=== PATIENT | female | born 1940 | race Caucasian/White ===

== ENCOUNTER 2017-03-01 17:00 | Inpatient (IN) | payer MEDICARE, OTHER ==
[~2017-03-01] VITALS: Ht 154.9 cm; Wt 62.0 kg
[~2017-03-01 17:00] MED LIST: PROC90TA PO; PROT40TA PO; SYNT125T PO
[2017-03-01 17:11] VITALS: BP 205/91; TEMP 97.6
[2017-03-01] MEDS ORDERED: SODIUM CHLORIDE 0.9% FLUSH 10 ML FLUSH IVF PRN (17:15)
[2017-03-01] MEDS ORDERED: SUMA100T2 PO (17:19)
[2017-03-01] MEDS ORDERED: NIFE15TA PO (17:19)
[2017-03-01] MEDS ORDERED: LEVO125T4 PO (17:19)
--- NOTE | 2017-03-01 17:51 | RADRPT ---
EXAM DATE/TIME: 03/01/2017 17:18 [facility] COMPARISON: No previous studies available for comparison. INDICATIONS : Evaluate chest for trauma, fell MEDICAL HISTORY : None. SURGICAL HISTORY : None. ENCOUNTER: Initial ACUITY: 1 day PAIN SCORE: 0/10 LOCATION: Bilateral chest FINDINGS: A single view of the chest demonstrates the lungs to be symmetrically aerated without evidence of mas s, infiltrate or effusion. The cardiomediastinal contours are unremarkable. Osseous structures are intact. CONCLUSION: No acute disease. Andrea Ricketts MD on March 01, 2017 at 17:49 Board Certified Radiologist. This report was verified electronically.
--- NOTE | 2017-03-01 17:53 | RADRPT ---
EXAM DATE/TIME: 03/01/2017 17:28 [facility] COMPARISON: No previous studies available for comparison. INDICATIONS : Right proximal femur pain, fell MEDICAL HISTORY : None. SURGICAL HISTORY : None. ENCOUNTER: Initial ACUITY: 1 day PAIN SCORE: 6/10 LOCATION: Right Femur FINDINGS: There is a mildly displaced intertrochanteric fracture of the proximal right femur. Bones are osteope constantine. No dislocation. Osteoarthritis of the right hip. CONCLUSION: 1. Mildly displaced intertrochanteric fracture proximal right femur. Andrea Ricketts MD on March 01, 2017 at 17:50 Board Certified Radiologist. This report was verified electronically.
--- NOTE | 2017-03-01 18:03 | PD ---
HPI Chief Complaint: Fall Time Seen by Provider: 17:03 Travel History International Travel<30 days: No Contact w/Intl Traveler<30days: No Traveled to known affect area: No History of Present Illness HPI 76-year-old female arrives by EMS. She experienced a mechanical fall while walking. She suffers with oculopharyngeal muscular dysplasia. She denies head trauma. She takes no anticoagulation. She has 0/10 right hip pain at rest however with movement the pain becomes 10 over 10. Onset sudden. No loss of consciousness occurred. No radiation. PFSH Past Medical History Autoimmune Disease: No Cancer: No Cardiovascular Problems: Yes Endocrine: Yes Genitourinary: No Immune Disorder: No Musculoskeletal: Yes (MUSCULAR DISTROPHY) Neurologic: No Psychiatric: No Reproductive: No Respiratory: No Migraines: Yes Thyroid Disease: Yes (Goiter) ?: Not Past Surgical History Pacemaker: No Social History Alcohol Use: No Tobacco Use: No Substance Use: No Allergies-Medications (Allergen,Severity, Reaction): Coded Allergies: No Known Allergies (Unverified , 03/01/17) Reported Meds & Prescriptions Reported Meds & Active Scripts Active Reported Sumatriptan (Sumatriptan Succinate) 100 Mg Tab 100 Mg PO ONCE PRN If a satisfactory response has not been obtained at 2 hours, a second dose may be administered Nifedical XL (Nifedipine) 60 Mg Tab 90 Mg PO DAILY Levothyroxine (Levothyroxine Sodium) 125 Mcg Tab 125 Mcg PO DAILY Review of Systems Except as stated in HPI: all other systems reviewed are Neg Neurologic: Positive: Other (oculopharyngeal muscular dysplasia) Physical Exam Narrative GENERAL: 76-year-old female, pleasant SKIN: Focused skin assessment warm/dry. HEAD: Atraumatic. Normocephalic. EYES: Pupils equal and round. No scleral icterus. No injection or drainage. ENT: No nasal bleeding or discharge. Mucous membranes pink and moist. NECK: Trachea midline. No JVD. CARDIOVASCULAR: Regular rate and rhythm. No murmur appreciated. RESPIRATORY: No accessory muscle use. Clear to auscultation. Breath sounds equal bilaterally. GASTROINTESTINAL: Abdomen soft, non-tender, nondistended. Hepatic and splenic margins not palpable. MUSCULOSKELETAL: RLE shortened and externally rotated. TTP R greater trochanter. 2+ DP bilaterally. NEUROLOGICAL: Awake and alert. No obvious cranial nerve deficits. Motor grossly within normal limits. Normal speech. PSYCHIATRIC: Appropriate mood and affect; insight and judgment normal. Data Data Last Documented VS Vital Signs Date Time Temp Pulse Resp B/P Pulse Ox O2 Delivery O2 Flow Rate FiO2 03/01/17 18:42 68 16 207/88 97 Room Air 03/01/17 17:11 97.6 Orders Electrocardiogram (03/01/17 17:08) Complete Blood Count With Diff (03/01/17 17:08) Comprehensive Metabolic Panel (03/01/17 17:08) Chest, Single Ap (03/01/17 17:08) Femur (Ap & Lat/2vws) (03/01/17 17:08) Hip, Uni(Ap&Lat) W Ap Pelvis (03/01/17 17:08) Iv Access Insert/Monitor (03/01/17 17:08) Oximetry (03/01/17 17:08) Ecg Monitoring (03/01/17 17:08) Sodium Chloride 0.9% Flush (Ns Flush) (03/01/17 17:15) Diet Npo (03/02/17 Dinner) Admit Order (Ed Use Only) (03/01/17 18:27) Consult Orthopedic (03/01/17 ) Admit To Inpatient (03/01/17 ) Code Status (03/01/17 18:32) Vital Signs (Adult) Q4H (03/01/17 18:32) Activity Bed Rest With Brp (03/01/17 18:32) Sodium Chloride 0.9% Flush (Ns Flush) (03/01/17 18:45) Sodium Chloride 0.9% Flush (Ns Flush) (03/01/17 21:00) Acetaminophen (Tylenol) (03/01/17 18:45) Ondansetron Inj (Zofran Inj) (03/01/17 18:45) Comprehensive Metabolic Panel (03/02/17 06:00) Complete Blood Count With Diff (03/02/17 06:00) Case Management Consult (03/01/17 18:32) Acetaminophen (Tylenol) (03/01/17 18:45) Acetamin-Hydrocod 325-5 Mg ([place] 5-325 (03/01/17 18:45) Acetamin-Hydrocod 325-7.5 Mg ([place] 7.5 (03/01/17 18:45) Morphine Inj (Morphine Inj) (03/01/17 18:45) Naloxone Inj (Narcan Inj) (03/01/17 18:45) Inpatient Certification (03/01/17 ) Levothyroxine (Synthroid) (03/02/17 06:00) Hydralazine Inj (Apresoline Inj) (03/01/17 18:45) Npo After Midnight W/ Po Meds (03/01/17 Dinner) Nifedipine Sr (Procardia Xl) (03/02/17 09:00) Labs Laboratory Tests Test 03/01/17 18:04 White Blood Count 12.7 TH/MM3 Red Blood Count 4.63 MIL/MM3 Hemoglobin 14.6 GM/DL Hematocrit 42.6 % Mean Corpuscular Volume 91.9 FL Mean Corpuscular Hemoglobin 31.5 PG Mean Corpuscular Hemoglobin 34.3 % Concent Red Cell Distribution Width 14.2 % Platelet Count 280 TH/MM3 Mean Platelet Volume 7.1 FL Neutrophils (%) (Auto) 83.6 % Lymphocytes (%) (Auto) 9.8 % Monocytes (%) (Auto) 5.9 % Eosinophils (%) (Auto) 0.2 % Basophils (%) (Auto) 0.5 % Neutrophils # (Auto) 10.7 TH/MM3 Lymphocytes # (Auto) 1.2 TH/MM3 Monocytes # (Auto) 0.8 TH/MM3 Eosinophils # (Auto) 0.0 TH/MM3 Basophils # (Auto) 0.1 TH/MM3 CBC Comment DIFF FINAL Differential Comment MDM Medical Decision Making Medical Screen Exam Complete: Yes Emergency Medical Condition: Yes Differential Diagnosis Pelvis fracture, femur fracture, contusion Narrative Course CBC & BMP Diagram 03/01/17 18:04 Last 24 hours Impressions Hip and Pelvis X-Ray 03/01/171707 Signed Impressions: Service Date/Time: Wednesday, March 01, 2017 17:25 - CONCLUSION: 1. There is a cortical break at the greater trochanter likely related to an intratrochanteric fracture. Andera Ricketts MD Femur X-Ray 03/01/171707 Signed Impressions: Service Date/Time: Wednesday, March 01, 2017 17:28 - CONCLUSION: 1. Mildly displaced intertrochanteric fracture proximal right femur. Andrea Ricketts MD Chest X-Ray 03/01/17 9976 Signed Impressions: Service Date/Time: Wednesday, March 01, 2017 17:18 - CONCLUSION: No acute disease. Andrea Ricketts MD The patient has a mildly displaced right intertrochanteric fracture. She'll be admitted for operative repair of the fracture. Case discussed with orthopedic surgery service who requests nothing by mouth past midnight status. Case discussed with hospitalist service Dr. Griffin. Diagnosis Primary Impression: Fall Qualified Code: W19.XXXA - Fall, initial encounter Additional Impression: Fracture, intertrochanteric, right femur Qualified Code: S72.141A - Fracture, intertrochanteric, right femur, closed, initial encounter Admitting Information Admitting Physician Requests: Admit Raymond Diaz MD Mar 01, 2017 18:03
--- NOTE | 2017-03-01 18:03 | RADRPT ---
EXAM DATE/TIME: 03/01/2017 17:25 [facility] COMPARISON: No previous studies available for comparison. INDICATIONS : Right hip pain, fell MEDICAL HISTORY : None. SURGICAL HISTORY : None. ENCOUNTER: Initial ACUITY: 1 day PAIN SCORE: 6/10 LOCATION: Right Hip FINDINGS: There is a cortical break at the greater trochanter with some lucency extending through the intertroc hanteric region most characteristic of an intratrochanteric fracture. No dislocation. Bones osteopeni c. Calcifications in the pelvis probably related to a large calcified fibroid. CONCLUSION: 1. There is a cortical break at the greater trochanter likely related to an intratrochanteric fractur eTony Ricketts MD on March 01, 2017 at 18:00 Board Certified Radiologist. This report was verified electronically.
[2017-03-01 18:31] LABS: AUTOMATED NEUTROPHIL # 10.7 TH/MM3 (1.8-7.7); BASOPHIL # 0.1 TH/MM3 (0-0.2); BASOPHIL % 0.5 % (0.0-2.0); EOSINOPHIL % 0.2 % (0.0-4.0); HEMATOCRIT 42.6 % (35.0-46.0); HEMO FLAGS DIFF FINAL; LYMPH % 9.8 % (9.0-44.0); LYMPHOCYTE # 1.2 TH/MM3 (1.0-4.8); MEAN CELL VOLUME 91.9 FL (80.0-100.0); MEAN CORPUSCULAR HEMOGLOBIN 31.5 PG (27.0-34.0); MEAN CORPUSCULAR HGB CONC 34.3 % (32.0-36.0); MONO % 5.9 % (0.0-8.0); NEUT % 83.6 % (16.0-70.0); PLATELET COUNT 280 TH/MM3 (150-450); RED BLOOD COUNT 4.63 MIL/MM3 (4.00-5.30); RED CELL DISTRIBUTION WIDTH 14.2 % (11.6-17.2); WHITE BLOOD COUNT 12.7 TH/MM3 (4.0-11.0)
--- NOTE | 2017-03-01 18:31 | HHI.HP ---
[facility]Staff Admission Diagnosis R Hip Fracture; Fall Diagnoses: (1) Hip fracture, right (2) Hypertension, benign (3) Hypothyroidism (4) Hx of muscular dystrophy (5) Fracture, intertrochanteric, right femur Chief Complaint: Right hip pain Travel History International Travel<30 Days: No Contact w/Intl Traveler <30 Da: No Traveled to Known Affected Are: No History of Present Illness 76-year-old female with a past medical history of oculopharyngeal muscular dysplasia was brought to the ED for evaluation of right hip pain status post mechanical fall as patient while patient was walking.. She states she lost her balance and landed on her right side. The pain was unbearable at a time however localized without any radiation. She denies any loss of consciousness or head trauma. There is no GI bleed. Patient denies any chest pain or shortness of breath. Review of Systems Other 12 systems reviewed are negative except for the one mentioned in the history of present illness Past Family Social History Past Medical History Hypothyroidism Hypertension, migraine headache muscular dystrophy Past Surgical History Appendectomy Reported Medications Sumatriptan (Sumatriptan Succinate) 100 Mg Tab 100 Mg PO ONCE PRN If a satisfactory response has not been obtained at 2 hours, a second dose may be administered Nifedical XL (Nifedipine) 60 Mg Tab 90 Mg PO DAILY Levothyroxine (Levothyroxine Sodium) 125 Mcg Tab 125 Mcg PO DAILY Allergies: Coded Allergies: No Known Allergies (Unverified , 03/01/17) Family History Reports history of hypertension. Maternal grandmother also had muscular dystrophy Social History Does not smoke cigarettes or drink alcohol. Physical Exam Vital Signs Vital Signs Date Time Temp Pulse Resp B/P Pulse Ox O2 Delivery O2 Flow Rate FiO2 03/01/17 17:11 97.6 205/91 Physical Exam GENERAL: This is a well-nourished, well-developed patient, in no apparent distress. SKIN: No rashes, ecchymoses or lesions. Cool and dry. HEAD: Atraumatic. Normocephalic. No temporal or scalp tenderness. EYES: Pupils equal round and reactive. Extraocular motions intact. No scleral icterus. No injection or drainage. ENT: Nose without bleeding, purulent drainage or septal hematoma. Throat without erythema, tonsillar hypertrophy or exudate. Uvula midline. Airway patent. NECK: Trachea midline. No JVD or lymphadenopathy. Supple, nontender, no meningeal signs. CARDIOVASCULAR: Regular rate and rhythm without murmurs, gallops, or rubs. RESPIRATORY: Clear to auscultation. Breath sounds equal bilaterally. No wheezes , rales, or rhonchi. GASTROINTESTINAL: Abdomen soft, non-tender, nondistended. No hepato-splenomegaly , or palpable masses. No guarding. MUSCULOSKELETAL: Extremities without clubbing, cyanosis, or edema. No joint tenderness, effusion, or edema noted. No calf tenderness. Right hip externally rotated NEUROLOGICAL: Awake and alert. Cranial nerves II through XII intact. Motor and sensory grossly within normal limits. Five out of 5 muscle strength in all muscle groups. Normal speech. Imaging Last Impressions Hip and Pelvis X-Ray 03/01/171707 Signed Impressions: Service Date/Time: Wednesday, March 01, 2017 17:25 - CONCLUSION: 1. There is a cortical break at the greater trochanter likely related to an intratrochanteric fracture. Andrea Ricketts MD Femur X-Ray 03/01/171707 Signed Impressions: Service Date/Time: Wednesday, March 01, 2017 17:28 - CONCLUSION: 1. Mildly displaced intertrochanteric fracture proximal right femur. Andrea Ricketts MD Chest X-Ray 03/01/171707 Signed Impressions: Service Date/Time: Wednesday, March 01, 2017 17:18 - CONCLUSION: No acute disease. Andrea Ricketts MD Assessment and Plan Problem List: (1) Fracture, intertrochanteric, right femur ICD Code: S72.141A Status: Acute (2) Hypertension, benign ICD Code: I10 Status: Chronic (3) Hx of muscular dystrophy ICD Code: Z86.69 Status: Chronic (4) Hypothyroidism ICD Code: E03.9 Status: Chronic Assessment and Plan 76 year-old female with Fracture, intertrochanteric right femur: Status post mechanical fall Hip and pelvic x-ray along with femur x-ray noted and reviewed by me with finding of Mildly displaced intertrochanteric fracture proximal right femur which orthopedic surgery has been consulted for evaluation for possible open reduction internal fixation 03/02/17. Will keep nothing by mouth after midnight. IV fluid hydration/analgesic/narcotics when necessary. PT consult postprocedure and DVT postprocedure per orthopedic surgery Hypertension: Labile BP, start hydralazine when necessary and resume verapamil in a.m. Hypothyroidism: Resume Synthroid in a.m. DVT prophylaxis: Postprocedure per orthopedic surgery Code Status Full code Discussed Condition With Patient, daughter, ED physician Physician Certification 2 Midnight Certification Type: Admission for Inpatient Services Order for Inpatient Services The services are ordered in accordance with Medicare regulations or non- Medicare payer requirements, as applicable. In the case of services not specified as inpatient-only, they are appropriately provided as inpatient services in accordance with the 2-midnight benchmark. Estimated LOS (days): 2 days is the estimated time the patient will need to remain in the hospital, assuming treatment plan goals are met and no additional complications. Post-Hospital Plan: Not yet determined Problem Qualifiers (1) Fracture, intertrochanteric, right femur: Qualified Code: S72.141A - Fracture, intertrochanteric, right femur, closed, initial encounter Philippe Griffin MD Mar 01, 2017 18:31
[2017-03-01 18:42] VITALS: BP 207/88; PULSE 68; RESP 16; O2SAT 97
[2017-03-01] MEDS ORDERED: ACETAMINOPHEN 325 MG TAB PO PRN ×2 (18:45)
[2017-03-01] MEDS ORDERED: NALOXONE HCL 0.4 MG/ML AMP IV PRN (18:45)
[2017-03-01] MEDS ORDERED: hydrALAZINE HCL 20 MG/ML VIAL IV PUSH PRN (18:45)
[2017-03-01] MEDS ORDERED: SODIUM CHLORIDE 0.9% FLUSH 10 ML FLUSH IV FLUSH PRN (18:45)
[2017-03-01] MEDS ORDERED: MORPHINE SULFATE 4 MG/ML INJ IV PRN (18:45)
[2017-03-01 18:52] LABS: ALKALINE PHOSPHATASE 72 U/L (45-117); ALT (GPT) 42 U/L (10-53); ANION GAP 8 MEQ/L (5-15); AST (GOT) 70 U/L (15-37); BICARBONATE 24.2 MEQ/L (21.0-32.0); BLOOD UREA NITROGEN 18 MG/DL (7-18); CHLORIDE 106 MEQ/L (98-107); GLOMERULAR FILTRATION RATE 120 ML/MIN (>89); SODIUM (NA) 138 MEQ/L (136-145); TOTAL BILIRUBIN ADULT 0.4 MG/DL (0.2-1.0)
[2017-03-01 18:53] LABS: POTASSIUM 4.9 MEQ/L (3.5-5.1)
[2017-03-01] MEDS ORDERED: ENALAPRILAT 1.25 MG/ML VIAL IV PUSH PRN (20:30)
[2017-03-01 20:31] VITALS: BP 165/81; PULSE 68; RESP 16; O2SAT 96
[2017-03-01 21:00] VITALS: BP 195/88; PULSE 86; RESP 16; TEMP 97.7; O2SAT 96
[2017-03-02] VITALS (7 sets, daily range): BP systolic 125–172; BP diastolic 58–96; PULSE 54–89; RESP 16–20; TEMP 95.8–98.6; O2SAT 95–99
[2017-03-02] MEDS: LEVOTHYROXINE SODIUM 125 MCG TAB PO SCH (06:00)
[2017-03-02 07:21] LABS: AUTOMATED NEUTROPHIL # 8.5 TH/MM3 (1.8-7.7); BASOPHIL % 0.4 % (0.0-2.0); EOSINOPHIL % 0.3 % (0.0-4.0); HEMO FLAGS DIFF FINAL; LYMPH % 11.9 % (9.0-44.0); LYMPHOCYTE # 1.3 TH/MM3 (1.0-4.8); MEAN CORPUSCULAR HGB CONC 34.1 % (32.0-36.0); MONO % 8.5 % (0.0-8.0); NEUT % 78.9 % (16.0-70.0); PLATELET COUNT 262 TH/MM3 (150-450); RED BLOOD COUNT 4.62 MIL/MM3 (4.00-5.30); RED CELL DISTRIBUTION WIDTH 14.2 % (11.6-17.2); WHITE BLOOD COUNT 10.7 TH/MM3 (4.0-11.0)
--- NOTE | 2017-03-02 07:42 | PD.CONS ---
cc: Syd Reyes MD HPI Service Orthopedic Surgeons Consult Requested By ED staff Reason for Consult Right hip fracture Primary Care Physician Non-Staff Admission Diagnosis R Hip Fracture; Fall Diagnoses: (1) Fracture, intertrochanteric, right femur (2) Hypertension, benign (3) Hx of muscular dystrophy (4) Hypothyroidism Chief Complaint: Right hip pain History of Present Illness 76-year-old female with a past medical history of oculopharyngeal muscular dysplasia was brought to the ED for evaluation of right hip pain status post mechanical fall as patient while patient was walking.. She states she lost her balance and landed on her right side. The pain was unbearable at a time however localized without any radiation. She denies any loss of consciousness or head trauma. There is no GI bleed. Patient denies any chest pain or shortness of breath. The patient is somewhat anxious. Her is at the bedside. Review of Systems Reviewed and well outlined in the medical record Past Family Social History Past Medical History Hypothyroidism Hypertension, migraine headache muscular dystrophy Past Surgical History Appendectomy Allergies: Coded Allergies: No Known Allergies (Unverified , 03/01/17) Active Ordered Medications Current Medications Medications (Trade) Dose Ordered Sig/[place] Route Start Time Stop Time Status Last Admin (NS Flush) 2 ml UNSCH PRN IVF 03/01/17 17:15 (NS Flush) 2 ml UNSCH PRN IV FLUSH 03/01/17 18:45 (NS Flush) 2 ml BID IV FLUSH 03/01/17 21:00 (Tylenol) 650 mg Q4H PRN PO 03/01/17 18:45 (Zofran Inj) 4 mg Q6H PRN IVP 03/01/17 18:45 (Tylenol) 650 mg Q6H PRN PO 03/01/17 18:45 ([place] 5-325 Mg) 1 tab Q4H PRN PO 03/01/17 18:45 ([place] 7.5-325 Mg) 1 tab Q4H PRN PO 03/01/17 18:45 (Morphine Inj) 2 mg Q3H PRN IV 03/01/17 18:45 (Narcan Inj) 0.4 mg UNSCH PRN IV 03/01/17 18:45 (Synthroid) 125 mcg DAILY@06 PO 03/02/17 06:00 (Procardia Xl) 90 mg DAILY PO 03/02/17 09:00 (Apresoline Inj) 20 mg Q4H PRN IV PUSH 03/01/17 18:45 (Vasotec Inj) 1.25 mg Q6H PRN IV PUSH 03/01/17 20:30 Reported Meds & Active Scripts Active Reported Sumatriptan (Sumatriptan Succinate) 100 Mg Tab 100 Mg PO ONCE PRN If a satisfactory response has not been obtained at 2 hours, a second dose may be administered Nifedical XL (Nifedipine) 60 Mg Tab 90 Mg PO DAILY Levothyroxine (Levothyroxine Sodium) 125 Mcg Tab 125 Mcg PO DAILY Family History Reports history of hypertension. Maternal grandmother also had muscular dystrophy Social History Does not smoke cigarettes or drink alcohol. Physical Exam Vital Signs Vital Signs Date Time Temp Pulse Resp B/P Pulse Ox O2 Delivery O2 Flow Rate FiO2 03/02/17 04:00 98.6 89 20 154/96 95 03/02/17 00:00 98.6 85 20 172/82 97 03/01/17 21:00 97.7 86 16 195/88 96 03/01/17 20:31 68 16 165/81 96 Room Air 03/01/17 18:42 68 16 207/88 97 Room Air 03/01/17 17:11 97.6 205/91 Physical Exam The patient has pain with any attempted range of motion of the right hip. Her leg lengths are equal. She has generalized weakness. She has good sensation distally Laboratory Laboratory Tests Test 03/01/17 03/02/17 18:04 06:52 White Blood Count 12.7 10.7 Red Blood Count 4.63 4.62 Hemoglobin 14.6 14.3 Hematocrit 42.6 42.0 Mean Corpuscular Volume 91.9 91.0 Mean Corpuscular Hemoglobin 31.5 31.0 Mean Corpuscular Hemoglobin 34.3 34.1 Concent Red Cell Distribution Width 14.2 14.2 Platelet Count 280 262 Mean Platelet Volume 7.1 7.3 Neutrophils (%) (Auto) 83.6 78.9 Lymphocytes (%) (Auto) 9.8 11.9 Monocytes (%) (Auto) 5.9 8.5 Eosinophils (%) (Auto) 0.2 0.3 Basophils (%) (Auto) 0.5 0.4 Neutrophils # (Auto) 10.7 8.5 Lymphocytes # (Auto) 1.2 1.3 Monocytes # (Auto) 0.8 0.9 Eosinophils # (Auto) 0.0 0.0 Basophils # (Auto) 0.1 0.0 CBC Comment DIFF FINAL DIFF FINAL Differential Comment Sodium Level 138 Potassium Level 4.9 Chloride Level 106 Carbon Dioxide Level 24.2 Anion Gap 8 Blood Urea Nitrogen 18 Creatinine 0.50 Estimat Glomerular Filtration 120 Rate Random Glucose 94 Calcium Level 8.9 Total Bilirubin 0.4 Aspartate Amino Transf 70 (AST/SGOT) Alanine Aminotransferase 42 (ALT/SGPT) Alkaline Phosphatase 72 Total Protein 8.1 Albumin 3.5 Result Diagram: 03/02/17 0652 03/01/17 1804 Imaging Last 48 hours Impressions Hip and Pelvis X-Ray 03/01/171707 Signed Impressions: Service Date/Time: Wednesday, March 01, 2017 17:25 - CONCLUSION: 1. There is a cortical break at the greater trochanter likely related to an intratrochanteric fracture. Andrea Ricketts MD Femur X-Ray 03/01/171707 Signed Impressions: Service Date/Time: Wednesday, March 01, 2017 17:28 - CONCLUSION: 1. Mildly displaced intertrochanteric fracture proximal right femur. Andrea Ricketts MD Chest X-Ray 03/01/171707 Signed Impressions: Service Date/Time: Wednesday, March 01, 2017 17:18 - CONCLUSION: No acute disease. Andrea Ricketts MD Assessment & Plan Problem List: (1) Fracture, intertrochanteric, right femur (2) Hx of muscular dystrophy (3) Hypertension, benign (4) Hypothyroidism Assessment and Plan The findings were discussed with the patient her . The options for treatment with operative and nonoperative were discussed. The risks and benefits of each were discussed. Recommendation given to consider surgical management to allow pain control and mobilization. The nature of the procedure , the risks, expected benefits, as well as the postoperative expectations have been discussed with them in detail. In addition, the alternatives to treatment risks of same were discussed. She is somewhat hesitant to make a decision at this time. They acknowledged full understanding. If the patient decides to proceed it most likely will be done today. Syd Reyes MD Mar 02, 2017 07:42
[2017-03-02 07:55] LABS: ALT (GPT) 35 U/L (10-53); ANION GAP 10 MEQ/L (5-15); AST (GOT) 27 U/L (15-37); BICARBONATE 24.1 MEQ/L (21.0-32.0); BLOOD UREA NITROGEN 9 MG/DL (7-18); CHLORIDE 105 MEQ/L (98-107); GLOMERULAR FILTRATION RATE 268 ML/MIN (>89); POTASSIUM 3.4 MEQ/L (3.5-5.1); SODIUM (NA) 139 MEQ/L (136-145)
[2017-03-02 08:00] LABS: ALKALINE PHOSPHATASE 75 U/L (45-117); TOTAL BILIRUBIN ADULT 0.9 MG/DL (0.2-1.0)
[2017-03-02] MEDS: ACETAMINOPHEN/HYDROcodone 325 MG/5 MG TAB PO PRN ×2 (09:07→18:42)
[2017-03-02] MEDS: ONDANSETRON HCL 4 MG/2 ML VIAL IVP PRN ×2 (09:07→15:49)
[2017-03-02] MEDS: NIFEdipine 90 MG SUSTAINED RELEASE TAB PO SCH (09:08)
[2017-03-02] MEDS: SODIUM CHLORIDE 0.9% FLUSH 10 ML FLUSH IV FLUSH SCH ×2 (09:08→20:06)
--- NOTE | 2017-03-02 10:38 | HHI.PR ---
Subjective Remarks Follow-up right hip fracture 03/02/17-patient seen and examined, she denies any significant right hip pain. Patient is hesitant to whether she would have surgery. Per nurse report, she has been refusing her morning meds. by the bedside Objective Vitals Vital Signs Date Time Temp Pulse Resp B/P Pulse Ox O2 Delivery O2 Flow Rate FiO2 03/02/17 04:00 98.6 89 20 154/96 95 03/02/17 00:00 98.6 85 20 172/82 97 03/01/17 21:00 97.7 86 16 195/88 96 03/01/17 20:31 68 16 165/81 96 Room Air 03/01/17 18:42 68 16 207/88 97 Room Air 03/01/17 17:11 97.6 205/91 Result Diagram: 03/02/17 0652 03/02/17 0652 Imaging Last Impressions Hip and Pelvis X-Ray 03/01/171707 Signed Impressions: Service Date/Time: Wednesday, March 01, 2017 17:25 - CONCLUSION: 1. There is a cortical break at the greater trochanter likely related to an intratrochanteric fracture. Andrea Ricketts MD Femur X-Ray 03/01/171707 Signed Impressions: Service Date/Time: Wednesday, March 01, 2017 17:28 - CONCLUSION: 1. Mildly displaced intertrochanteric fracture proximal right femur. Andrea Ricketts MD Chest X-Ray 03/01/171707 Signed Impressions: Service Date/Time: Wednesday, March 01, 2017 17:18 - CONCLUSION: No acute disease. Andrea Ricketts MD Objective Remarks GENERAL: NAD SKIN: Warm and dry. HEAD: Normocephalic. EYES: No scleral icterus. No injection or drainage. NECK: Supple, trachea midline. No JVD or lymphadenopathy. CARDIOVASCULAR: Regular rate and rhythm without murmurs, gallops, or rubs. RESPIRATORY: Breath sounds equal bilaterally. No accessory muscle use. GASTROINTESTINAL: Abdomen soft, non-tender, nondistended. MUSCULOSKELETAL: No cyanosis, or edema. Right hip internally rotating BACK: Nontender without obvious deformity. No CVA tenderness. A/P Problem List: (1) Fracture, intertrochanteric, right femur ICD Code: S72.141A Status: Acute (2) Hypertension, benign ICD Code: I10 Status: Chronic (3) Hx of muscular dystrophy ICD Code: Z86.69 Status: Chronic (4) Hypothyroidism ICD Code: E03.9 Status: Chronic Assessment and Plan 76 year-old female with Fracture, intertrochanteric right femur: Status post mechanical fall Hip and pelvic x-ray along with femur x-ray with finding of Mildly displaced intertrochanteric fracture proximal right femur for which orthopedic surgery has been consulted for evaluation for possible open reduction internal fixation 03/02/17, however patient is currently Hesitant. Continue with IV fluid hydration/analgesic/narcotics when necessary. PT consult postprocedure and DVT postprocedure per orthopedic surgery Hypertension: Labile BP, continue verapamil and hydralazine when necessary Hypothyroidism: Continue Synthroid DVT prophylaxis: Postprocedure per orthopedic surgery Problem Qualifiers (1) Fracture, intertrochanteric, right femur: Qualified Code: S72.141A - Fracture, intertrochanteric, right femur, closed, initial encounter Philippe Griffin MD Mar 02, 2017 10:38
[2017-03-02] MEDS ORDERED: VANCOMYCIN HCL 1000 MG VIAL ONE (11:10)
[2017-03-02] MEDS ORDERED: ceFAZolin INJ 1,000 MG VIAL ONE (11:12)
[2017-03-02] MEDS ORDERED: GENTAMICIN SULFATE 80 MG/2 ML VIAL IRRIGATION ONE (11:24)
--- NOTE | 2017-03-02 11:44 | EKG ---
Date Performed: 03/01/2017 Time Performed: 17:41:30 PTAGE: 76 years EKG: Sinus rhythm NORMAL ECG PREVIOUS TRACING : 02/01/2014 22.01 Compared to prior tracing no significant change DOCTOR: Norm Mcfadden Interpretating Date/Time 03/02/2017 11:43:38
[2017-03-02] MEDS ORDERED: PHENYLEPH/NS 1000 MCG/10 ML SYR IV ONE (12:00)
[2017-03-02] MEDS ORDERED: PROPOFOL 200 MG/20 ML AMP IV ONE (12:00)
--- NOTE | 2017-03-02 12:01 | PD.OP ---
cc: Greg Delgado Jr., MD Operative Report Date of Surgery: Mar 02, 2017 Preoperative Diagnosis: Right intertrochanteric femur fracture Postoperative Diagnosis: Same Procedure: Right intertrochanteric intramedullary aida fixation Anesthesia: Gen. Surgeon: Greg Delgado Knowledge Management Consultant(s): Staff Resident Surgeon: None Operation and Findings: The patient received intravenous ancef. After the appropriate anesthesia was administered, and the patient was transferred to the fracture table. The fracture was anatomically reduced under fluoroscopic imaging. The RIGHT hip was prepped and draped in usual sterile fashion. We made incision just proximal to the tip of the greater trochanter. We dissected down through the deep fascia. We used a threaded guidewire at the tip of the greater trochanter which was placed down to the metaphyseal region on both the AP and lateral views. We reamed proximally. Using fluoroscopic analysis we templated the appropriate size for the short nail. This nail was then placed into position under fluoroscopic guidance. We made incision laterally based on the position of the associated jig. We then placed a threaded guidewire into the center, center of the femoral head. The appropriate length for the screw was measured. We drilled laterally and then step reamed the femoral neck and femoral head region. The screw was placed into position. We then tightened the proximal set screw, which was followed by releasing one turn off of the screw to allow for compression. Traction was released from the leg and compression was performed. The nail was secured distally with a single screw off of the jig using fluoroscopic guidance. We took final fluoroscopic imaging which revealed that the fracture was in very good position. The hardware was in good position as well. The wounds were thoroughly irrigated and then closed with a 0 Vicryl followed by 2-0 Vicryl and noah. The postoperative plan is to start 50% weightbearing. Additionally, we will initiate postoperative antibiotics for 24 hours along with DVT prophylaxis consisting of early mobilization, SCDs, compression stockings, and []. IMPLANTS USED Synthes short trochanteric nail, size: 10 mm POSTP-OP PLAN OF ACTIVITY Antibiotics: Ancef Antiocoagulation: Lovenox Weight bearing status: 50 % WB Dressing: Change daily, by RN starting postop day 2 Dispo: expected discharge 2-3 days. Likely inpatient rehabilitation Greg Delgado Jr., MD Mar 02, 2017 12:01
[2017-03-02] MEDS ORDERED: *morphine SULFATE 8 MG/ML PERIprocedure ONLY ONE (12:18)
[2017-03-02] MEDS ORDERED: *ONDANSETRON 4 MG VIAL PERIprocedural Use ONLY ONE (12:18)
[2017-03-02] MEDS ORDERED: DO NOT ADM ANY ANTICOAGULANT DRUGS PRN (12:30)
[2017-03-02] MEDS ORDERED: PERC5TAB12 PO (13:15)
--- NOTE | 2017-03-02 15:35 | RADRPT ---
EXAM DATE/TIME: 03/02/2017 11:40 [facility] COMPARISON: HIP RIGHT (AP&LAT 2/3VWS) W AP PELVIS, March 01, 2017, 17:25. INDICATIONS : Right hip fracture.Troch nail. MEDICAL HISTORY : None. SURGICAL HISTORY : None. ENCOUNTER: Initial ACUITY: 1 day PAIN SCORE: Non-responsive. LOCATION: Right Hip. FINDINGS: Examination of the right hip was performed . An intertrochanteric fracture of the proximal right femu r has been openly reduced with a trochanteric nail. There is satisfactory apposition and alignment of the fracture fragments. CONCLUSION: Satisfactory appearance of the right hip following ORIF of a intertrochanteric fractu re. Tom Bell MD on March 02, 2017 at 15:32 Board Certified Radiologist. This report was verified electronically.
[2017-03-02] MEDS: ceFAZolin 1,000 MG/NS 100 ML IV SCH ×2 (19:25)
[2017-03-03] VITALS (7 sets, daily range): BP systolic 118–153; BP diastolic 52–69; PULSE 65–86; RESP 16–18; TEMP 96.7–99.7; O2SAT 91–99
[2017-03-03] MEDS: LEVOTHYROXINE SODIUM 125 MCG TAB PO SCH (04:04)
[2017-03-03] MEDS: ceFAZolin 1,000 MG/NS 100 ML IV SCH ×4 (04:05→11:51)
[2017-03-03] MEDS: ACETAMINOPHEN/HYDROcodone 325 MG/5 MG TAB PO PRN ×4 (04:10→21:51)
[2017-03-03] MEDS: SODIUM CHLORIDE 0.9% FLUSH 10 ML FLUSH IV FLUSH SCH ×3 (09:00→21:49)
[2017-03-03] MEDS ORDERED: ENOXAPARIN SODIUM 30 MG/0.3 ML SYRINGE SQ SCH (09:00)
[2017-03-03] MEDS: NIFEdipine 90 MG SUSTAINED RELEASE TAB PO SCH (09:00)
--- NOTE | 2017-03-03 10:28 | HHI.PR ---
Subjective Remarks Follow-up right hip fracture 03/02/17-patient seen and examined, she denies any significant right hip pain. Patient is hesitant to whether she would have surgery. Per nurse report, she has been refusing her morning meds. by the bedside 03/03/17-patient seen and examined, she is postop day 1 Right intertrochanteric intramedullary aida fixation and reports significant improvement of right hip pain. Currently afebrile in no acute event overnight. Family by the bedside. Objective Vitals Vital Signs Date Time Temp Pulse Resp B/P Pulse Ox O2 Delivery O2 Flow Rate FiO2 03/03/17 08:00 96.7 70 18 118/53 99 03/03/17 06:11 97.9 65 17 126/52 98 03/03/17 00:19 97.1 67 16 153/69 97 03/02/17 20:55 99 Nasal Cannula 2.00 03/02/17 20:10 96.1 57 17 162/69 99 03/02/17 16:53 95.9 63 16 138/66 99 03/02/17 13:00 95.8 54 16 125/58 99 03/02/17 12:30 59 14 116/57 98 Nasal Cannula 2 03/02/17 12:15 66 16 130/51 98 Nasal Cannula 2 03/02/17 12:00 60 14 138/65 98 Nasal Cannula 2 03/02/17 11:59 98.9 40 16 134/74 96 Simple Mask 6 I/O 03/02/17 03/02/17 03/02/17 03/03/17 03/03/17 03/03/17 07:00 15:00 23:00 07:00 15:00 23:00 Intake Total 540 ml 497 ml 198 ml 240 ml Output Total 50 ml Balance 490 ml 497 ml 198 ml 240 ml Intake Oral 240 ml 360 ml 240 ml IV Total 137 ml 198 ml Other 300 ml Output Estimated Blood Loss 50 ml # Voids 2 1 2 1 # Bowel Movements 0 0 Result Diagram: 03/02/17 0652 03/02/17 0652 Imaging Last Impressions Hip and Pelvis X-Ray 03/02/17 0000 Signed Impressions: Service Date/Time: Thursday, March 02, 2017 11:40 - CONCLUSION: Satisfactory appearance of the right hip following ORIF of a intertrochanteric fracture. Tom Bell MD Femur X-Ray 03/01/171707 Signed Impressions: Service Date/Time: Wednesday, March 01, 2017 17:28 - CONCLUSION: 1. Mildly displaced intertrochanteric fracture proximal right femur. Andrea Ricketts MD Chest X-Ray 03/01/171707 Signed Impressions: Service Date/Time: Wednesday, March 01, 2017 17:18 - CONCLUSION: No acute disease. Andrea Ricketts MD Objective Remarks GENERAL: NAD SKIN: Warm and dry. HEAD: Normocephalic. EYES: No scleral icterus. No injection or drainage. NECK: Supple, trachea midline. No JVD or lymphadenopathy. CARDIOVASCULAR: Regular rate and rhythm without murmurs, gallops, or rubs. RESPIRATORY: Breath sounds equal bilaterally. No accessory muscle use. GASTROINTESTINAL: Abdomen soft, non-tender, nondistended. MUSCULOSKELETAL: No cyanosis, or edema. Right hip repair with dressing in place -neurovascular intact BACK: Nontender without obvious deformity. No CVA tenderness. Procedures s/p Right intertrochanteric intramedullary aida fixation 03/02/17 A/P Problem List: (1) Fracture, intertrochanteric, right femur ICD Code: S72.141A Status: Acute (2) Hypertension, benign ICD Code: I10 Status: Chronic (3) Hx of muscular dystrophy ICD Code: Z86.69 Status: Chronic (4) Hypothyroidism ICD Code: E03.9 Status: Chronic Assessment and Plan 76 year-old female with Fracture, intertrochanteric right femur: s/p Right intertrochanteric intramedullary aida fixation 03/02/17 and management per orthopedic surgery. Continue postop care. PT to treat and eval Hypertension: continue verapamil and hydralazine when necessary Hypothyroidism: Continue Synthroid DVT prophylaxis: Lovenox 30 mg subcutaneous twice a day Problem Qualifiers (1) Fracture, intertrochanteric, right femur: Qualified Code: S72.141A - Fracture, intertrochanteric, right femur, closed, initial encounter Philippe Griffin MD Mar 03, 2017 10:28
[2017-03-03] MEDS: ENOXAPARIN SODIUM 30 MG/0.3 ML SYRINGE SQ SCH ×2 (11:51→21:49)
[2017-03-03] MEDS ORDERED: oxyCODONE/ACETAMINOPHEN 5 MG/325 MG TAB PO PRN ×2 (15:00)
[2017-03-03] MEDS ORDERED: ACETAMINOPHEN 325 MG TAB PO PRN (15:00)
[2017-03-03] MEDS ORDERED: ZOLPIDEM TARTRATE 5 MG TAB PO PRN (15:00)
[2017-03-03] MEDS ORDERED: SODIUM CHLORIDE 0.9% FLUSH 10 ML FLUSH IV FLUSH PRN (15:00)
[2017-03-03] MEDS ORDERED: MORPHINE SULFATE 8 MG/ML INJ IV PUSH PRN (15:00)
[2017-03-03] MEDS ORDERED: PROMETHAZINE HCL 25 MG TAB PO PRN (15:00)
[2017-03-03] MEDS ORDERED: Post-op Orders (for Pharmacy) MISC XX ONE (15:00)
[2017-03-03] MEDS: KETOROLAC TROMETHAMINE 30 MG/ML (IVP) VIAL IVP SCH ×2 (15:00→21:50)
--- NOTE | 2017-03-03 21:53 | PD.ORT.PN ---
Subjective Subjective Remarks doing well. no issues. Objective Vitals Vital Signs Date Time Temp Pulse Resp B/P Pulse Ox O2 Delivery O2 Flow Rate FiO2 03/03/17 20:00 99.7 86 17 133/59 91 03/03/17 16:31 98.9 76 18 126/61 95 03/03/17 12:00 97.2 70 18 140/60 97 03/03/17 08:00 96.7 70 18 118/53 99 03/03/17 06:11 97.9 65 17 126/52 98 03/03/17 00:19 97.1 67 16 153/69 97 I/O 03/02/17 03/02/17 03/02/17 03/03/17 03/03/17 03/03/17 07:00 15:00 23:00 07:00 15:00 23:00 Intake Total 540 ml 497 ml 198 ml 960 ml Output Total 50 ml Balance 490 ml 497 ml 198 ml 960 ml Intake Oral 240 ml 360 ml 960 ml IV Total 137 ml 198 ml Other 300 ml Output Estimated Blood Loss 50 ml # Voids 2 1 2 3 # Bowel Movements 0 0 Result Diagram: 03/02/17 0652 03/02/17 0652 Objective Remarks RLE: nvi. dressing CDI. SILT distally, 2+ Pt/DP Assessment & Plan Problem List: (1) Fracture, intertrochanteric, right femur (2) Hx of muscular dystrophy (3) Hypertension, benign (4) Hypothyroidism Assessment and Plan POD 1- right hip IMN doing well. lovenox 50 % WB dressing change POD 2 likely inpatient rehab Greg Flynn Jr., MD Mar 03, 2017 21:53
[2017-03-04 00:38] VITALS: BP 103/55; PULSE 70; RESP 18; TEMP 98.6; O2SAT 94
[2017-03-04] MEDS: KETOROLAC TROMETHAMINE 30 MG/ML (IVP) VIAL IVP SCH ×4 (03:50→20:05)
[2017-03-04] MEDS: LEVOTHYROXINE SODIUM 125 MCG TAB PO SCH (03:50)
[2017-03-04 04:08] VITALS: BP 112/70; PULSE 73; RESP 17; TEMP 99.3; O2SAT 94
[2017-03-04 08:00] VITALS: BP 110/56; PULSE 70; RESP 18; TEMP 98.2; O2SAT 96
[2017-03-04] MEDS: SODIUM CHLORIDE 0.9% FLUSH 10 ML FLUSH IV FLUSH SCH ×4 (09:00→20:05)
[2017-03-04] MEDS: NIFEdipine 90 MG SUSTAINED RELEASE TAB PO SCH (09:13)
[2017-03-04] MEDS: ENOXAPARIN SODIUM 30 MG/0.3 ML SYRINGE SQ SCH ×2 (09:14→20:05)
[2017-03-04] MEDS: ACETAMINOPHEN/HYDROcodone 325 MG/5 MG TAB PO PRN ×2 (10:45→15:03)
[2017-03-04 12:00] VITALS: BP 102/54; PULSE 79; RESP 18; TEMP 97.6; O2SAT 98
--- NOTE | 2017-03-04 12:01 | HHI.PR ---
Subjective Remarks Follow-up right hip fracture 03/02/17-patient seen and examined, she denies any significant right hip pain. Patient is hesitant to whether she would have surgery. Per nurse report, she has been refusing her morning meds. by the bedside 03/03/17-patient seen and examined, she is postop day 1 Right intertrochanteric intramedullary aida fixation and reports significant improvement of right hip pain. Currently afebrile in no acute event overnight. Family by the bedside. 03/04/17-patient seen and examined him a complaint of some right lower extremity pain otherwise stable. Afebrile. by the bedside. Objective Vitals Vital Signs Date Time Temp Pulse Resp B/P Pulse Ox O2 Delivery O2 Flow Rate FiO2 03/04/17 08:03 96 Room Air 03/04/17 08:00 98.2 70 18 110/56 96 03/04/17 04:08 99.3 73 17 112/70 94 03/04/17 00:38 98.6 70 18 103/55 94 03/03/17 22:09 94 03/03/17 20:00 99.7 86 17 133/59 91 03/03/17 19:08 Room Air 03/03/17 16:31 98.9 76 18 126/61 95 I/O 03/03/17 03/03/17 03/03/17 03/04/17 03/04/17 03/04/17 07:00 15:00 23:00 07:00 15:00 23:00 Intake Total 198 ml 960 ml 360 ml 240 ml Balance 198 ml 960 ml 360 ml 240 ml Intake Oral 960 ml 360 ml 240 ml IV Total 198 ml # Voids 3 3 1 # Bowel Movements 0 0 0 Result Diagram: 03/02/17 0652 03/02/17 0652 Objective Remarks GENERAL: NAD and sitting in a chair SKIN: Warm and dry. HEAD: Normocephalic. EYES: No scleral icterus. No injection or drainage. NECK: Supple, trachea midline. No JVD or lymphadenopathy. CARDIOVASCULAR: Regular rate and rhythm without murmurs, gallops, or rubs. RESPIRATORY: Breath sounds equal bilaterally. No accessory muscle use. GASTROINTESTINAL: Abdomen soft, non-tender, nondistended. MUSCULOSKELETAL: No cyanosis, or edema. Right hip repair with dressing in place -neurovascular intact BACK: Nontender without obvious deformity. No CVA tenderness. Procedures s/p Right intertrochanteric intramedullary aida fixation 03/02/17 A/P Problem List: (1) Fracture, intertrochanteric, right femur ICD Code: S72.141A Status: Acute (2) Hypertension, benign ICD Code: I10 Status: Chronic (3) Hx of muscular dystrophy ICD Code: Z86.69 Status: Chronic (4) Hypothyroidism ICD Code: E03.9 Status: Chronic Assessment and Plan 76 year-old female with Fracture, intertrochanteric right femur: Stable, s/p Right intertrochanteric intramedullary aida fixation 03/02/17 and management per orthopedic surgery. Continue postop care. PT to treat and eval Hypertension: continue verapamil and hydralazine when necessary Hypothyroidism: Continue Synthroid DVT prophylaxis: Lovenox 30 mg subcutaneous twice a day Discharge Planning Likely discharge to [facility] 03/05/17 Problem Qualifiers (1) Fracture, intertrochanteric, right femur: Qualified Code: S72.141A - Fracture, intertrochanteric, right femur, closed, initial encounter Philippe Griffin MD Mar 04, 2017 12:01
[2017-03-04 16:16] VITALS: BP 137/65; PULSE 81; RESP 18; TEMP 97.2; O2SAT 96
[2017-03-04 19:45] VITALS: BP 130/65; PULSE 80; RESP 18; TEMP 97.1; O2SAT 97
[2017-03-04] MEDS: DOCUSATE SODIUM 100 MG CAP PO SCH ×2 (20:03→20:05)
[2017-03-04] MEDS: MULTIVITAMINS/MINERALS THERAPEUTIC TAB PO SCH (20:05)
[2017-03-04] MEDS: MAGNESIUM HYDROXIDE SUSP 30 ML CUP PO SCH (20:06)
[2017-03-05] VITALS: BP 119/58; PULSE 78; RESP 20; TEMP 99.8; O2SAT 95
[2017-03-05] MEDS: ACETAMINOPHEN/HYDROcodone 325 MG/7.5 MG TAB PO PRN ×3 (00:15→10:37)
[2017-03-05] MEDS: KETOROLAC TROMETHAMINE 30 MG/ML (IVP) VIAL IVP SCH ×2 (02:28→08:32)
[2017-03-05] MEDS: LEVOTHYROXINE SODIUM 125 MCG TAB PO SCH (06:17)
[2017-03-05 07:47] VITALS: BP 108/58; PULSE 70; RESP 18; TEMP 97.5; O2SAT 92
[2017-03-05] MEDS: NIFEdipine 90 MG SUSTAINED RELEASE TAB PO SCH (08:32)
[2017-03-05] MEDS: DOCUSATE SODIUM 100 MG CAP PO SCH ×2 (08:32→08:34)
[2017-03-05] MEDS: MAGNESIUM HYDROXIDE SUSP 30 ML CUP PO SCH (08:32)
[2017-03-05] MEDS: MULTIVITAMINS/MINERALS THERAPEUTIC TAB PO SCH (08:32)
[2017-03-05] MEDS: SODIUM CHLORIDE 0.9% FLUSH 10 ML FLUSH IV FLUSH SCH ×2 (08:32→08:36)
[2017-03-05] MEDS: ENOXAPARIN SODIUM 30 MG/0.3 ML SYRINGE SQ SCH (08:33)
--- NOTE | 2017-03-05 10:00 | HHI.PR ---
Subjective Remarks Follow-up right hip fracture 03/02/17-patient seen and examined, she denies any significant right hip pain. Patient is hesitant to whether she would have surgery. Per nurse report, she has been refusing her morning meds. by the bedside 03/03/17-patient seen and examined, she is postop day 1 Right intertrochanteric intramedullary aida fixation and reports significant improvement of right hip pain. Currently afebrile in no acute event overnight. Family by the bedside. 03/04/17-patient seen and examined him a complaint of some right lower extremity pain otherwise stable. Afebrile. by the bedside. 03/05/17-patient seen and examined, right hip pain control, currently afebrile. Denies any acute event overnight. Only complains of constipation Objective Vitals Vital Signs Date Time Temp Pulse Resp B/P Pulse Ox O2 Delivery O2 Flow Rate FiO2 03/05/17 08:47 Room Air 03/05/17 07:47 97.5 70 18 108/58 92 03/05/17 00:00 99.8 78 20 119/58 95 03/04/17 19:45 97.1 80 18 130/65 97 03/04/17 16:16 97.2 81 18 137/65 96 03/04/17 12:00 97.6 79 18 102/54 98 I/O 03/04/17 03/04/17 03/04/17 03/05/17 03/05/17 03/05/17 07:00 15:00 23:00 07:00 15:00 23:00 Intake Total 240 ml 450 ml 360 ml Balance 240 ml 450 ml 360 ml Intake Oral 240 ml 450 ml 360 ml # Voids 1 2 2 # Bowel Movements 0 0 0 Result Diagram: 03/02/17 0652 03/02/17 0652 Imaging Last Impressions Hip and Pelvis X-Ray 03/02/17 0000 Signed Impressions: Service Date/Time: Thursday, March 02, 2017 11:40 - CONCLUSION: Satisfactory appearance of the right hip following ORIF of a intertrochanteric fracture. Tom Bell MD Femur X-Ray 03/01/17 1708 Signed Impressions: Service Date/Time: Wednesday, March 01, 2017 17:28 - CONCLUSION: 1. Mildly displaced intertrochanteric fracture proximal right femur. Andrea Ricketts MD Chest X-Ray 03/01/17 1708 Signed Impressions: Service Date/Time: Wednesday, March 01, 2017 17:18 - CONCLUSION: No acute disease. Andrea Ricketts MD Objective Remarks GENERAL: NAD SKIN: Warm and dry. HEAD: Normocephalic. EYES: No scleral icterus. No injection or drainage. NECK: Supple, trachea midline. No JVD or lymphadenopathy. CARDIOVASCULAR: Regular rate and rhythm without murmurs, gallops, or rubs. RESPIRATORY: Breath sounds equal bilaterally. No accessory muscle use. GASTROINTESTINAL: Abdomen soft, non-tender, nondistended. MUSCULOSKELETAL: No cyanosis, or edema. Right hip repair with dressing in place -neurovascular intact BACK: Nontender without obvious deformity. No CVA tenderness. Procedures s/p Right intertrochanteric intramedullary aida fixation 03/02/17 A/P Problem List: (1) Fracture, intertrochanteric, right femur ICD Code: S72.141A Status: Acute (2) Hypertension, benign ICD Code: I10 Status: Chronic (3) Hx of muscular dystrophy ICD Code: Z86.69 Status: Chronic (4) Hypothyroidism ICD Code: E03.9 Status: Chronic Assessment and Plan 76 year-old female with Fracture, intertrochanteric right femur: Stable, s/p Right intertrochanteric intramedullary aida fixation 03/02/17 and management per orthopedic surgery. Continue current care. PT to treat and eval Hypertension: continue verapamil and hydralazine when necessary Hypothyroidism: Continue Synthroid Constipation: 2/2 Narcotic induced; Fleet enema 1 now DVT prophylaxis: Lovenox 30 mg subcutaneous twice a day Discharge Planning discharge [facility] 03/05/17 Problem Qualifiers (1) Fracture, intertrochanteric, right femur: Qualified Code: S72.141A - Fracture, intertrochanteric, right femur, closed, initial encounter Philippe Griffin MD Mar 05, 2017 10:00
[2017-03-05] MEDS ORDERED: PERI8.6T PO (10:01)
--- NOTE | 2017-03-05 10:03 | HHI.DS ---
Discharge Summary Admission Date Mar 01, 2017 at 18:30 Discharge Date: Mar 05, 2017 Admitting Diagnosis R Hip Fracture; Fall (1) Fracture, intertrochanteric, right femur ICD Code: S72.141A (2) Hypertension, benign ICD Code: I10 (3) Hx of muscular dystrophy ICD Code: Z86.69 (4) Hypothyroidism ICD Code: E03.9 Procedures s/p Right intertrochanteric intramedullary aida fixation 03/02/17 Brief History - From Admission 76-year-old female with a past medical history of oculopharyngeal muscular dysplasia was brought to the ED for evaluation of right hip pain status post mechanical fall as patient while patient was walking.. She states she lost her balance and landed on her right side. The pain was unbearable at a time however localized without any radiation. She denies any loss of consciousness or head trauma. There is no GI bleed. Patient denies any chest pain or shortness of breath. CBC/BMP: 03/02/17 0652 03/02/17 0652 Imaging Last Impressions Hip and Pelvis X-Ray 03/02/17 0000 Signed Impressions: Service Date/Time: Thursday, March 02, 2017 11:40 - CONCLUSION: Satisfactory appearance of the right hip following ORIF of a intertrochanteric fracture. Tom Bell MD Femur X-Ray 03/01/17 170 Signed Impressions: Service Date/Time: Wednesday, March 01, 2017 17:28 - CONCLUSION: 1. Mildly displaced intertrochanteric fracture proximal right femur. Andrea Ricketts MD Chest X-Ray 03/01/17 1708 Signed Impressions: Service Date/Time: Wednesday, March 01, 2017 17:18 - CONCLUSION: No acute disease. Andrea Ricketts MD PE at Discharge GENERAL: NAD SKIN: Warm and dry. HEAD: Normocephalic. EYES: No scleral icterus. No injection or drainage. NECK: Supple, trachea midline. No JVD or lymphadenopathy. CARDIOVASCULAR: Regular rate and rhythm without murmurs, gallops, or rubs. RESPIRATORY: Breath sounds equal bilaterally. No accessory muscle use. GASTROINTESTINAL: Abdomen soft, non-tender, nondistended. MUSCULOSKELETAL: No cyanosis, or edema. Right hip repair with dressing in place -neurovascular intact BACK: Nontender without obvious deformity. No CVA tenderness. Hospital Course Patient was admitted with Fracture, intertrochanteric right femur for which orthopedic surgery was consulted and she underwent Right intertrochanteric intramedullary aida fixation 03/02/17 . Postoperatively DVT prophylaxis was provided and PT was consulted. She was continued on a treatment for hypertension and hypothyroidism. Vitals remained stable prior to discharge. Pt Condition on Discharge: Fair Discharge Disposition: Rehab Inpatient Discharge Time: > 30 minutes Discharge Instructions DIET: Follow Instructions for: Heart Healthy Diet Activities you can perform: Regular-No Restrictions Follow up Referrals: Orthopedics - 2 Weeks @ [facility] with Greg Delgado Jr., MD New Medications: Oxycodone-Acetaminophen (Percocet) 5-325 mg Tab 1 TAB PO Q4H PRN PAIN #60 Ref 0 TAB Sennosides-Docusate Sodium (Krystle-Colace) 8.6-50 Mg Tab 1 TAB PO BID PRN Constipation #60 Ref 0 TAB Enoxaparin Inj (Lovenox Inj) 30 Mg/0.3 Ml Syr 30 MG SQ BID Prevent Blood Clot #14 INJECTION Continued Medications: Levothyroxine (Levothyroxine) 125 Mcg Tab 125 MCG PO DAILY Thyroid #30 Ref 0 TAB Nifedipine ER 24 HR (Nifedical XL) 60 Mg Tab 90 MG PO DAILY #30 Ref 0 TAB Discontinued Medications: Sumatriptan (Sumatriptan) 100 Mg Tab 100 MG PO ONCE If a satisfactory response has not been obtained at 2 hours, a second dose may be administered PRN MIGRAINE HEADACHE Ref 0 TAB Philippe Griffin MD Mar 05, 2017 10:03
[2017-03-05] MEDS ORDERED: ENOX30P SQ (10:05)
[2017-03-05 10:34] VITALS: BP 117/59; PULSE 83; RESP 16; TEMP 96.5; O2SAT 96
[2017-03-05] MEDS ORDERED: SOD PHOSPHATE/SOD BIPHOSPHATE (ADULT) ENEMA 133ML PR ONE (11:00)
[2017-03-12] MEDS ORDERED: WHEEMIS3 (08:04)
[2017-03-12] MEDS ORDERED: COMMODE (08:04)
[2017-03-12] MEDS ORDERED: OYST250T4 PO (12:19)
[2017-03-12] MEDS ORDERED: PERI8.6T PO (12:19)
[2017-03-12] MEDS ORDERED: LEVO125T4 PO (12:19)
[2017-03-12] MEDS ORDERED: THERM PO (12:19)
[2017-03-12] MEDS ORDERED: NIFE15TA PO (12:19)
[2017-03-12] MEDS ORDERED: HYDR-3516 PO (12:19)
== END 2017-03-05 13:58 | DRG 481 ==
LOC: NEPC 17:00 → NEDA 18:30 → N06B 20:58
PROVIDERS: ADMIT Hospitalist; ATTEND Hospitalist
PROC: 0QS636Z Reposition Right Upper Femur with Intramedullary Internal Fixation Device, Percutaneous Approach (ICD-10-PCS; principal; 2017-03-02 10:44)
DX: S72.141B Displaced intertrochanteric fracture of right femur, initial encounter for open fracture type I or II (principal); G71.0 Muscular dystrophy; E04.9 Nontoxic goiter, unspecified; W18.30XA Fall on same level, unspecified, initial encounter; Y93.01 Activity, walking, marching and hiking; Y92.9 Unspecified place or not applicable; Y99.9 Unspecified external cause status; G43.909 Migraine, unspecified, not intractable, without status migrainosus; E03.9 Hypothyroidism, unspecified; I10 Essential (primary) hypertension; K59.03 Drug induced constipation; T40.605A Adverse effect of unspecified narcotics, initial encounter; Y92.239 Unspecified place in hospital as the place of occurrence of the external cause
CPT/HCPCS: 71010; 73502; 73552; 76000; 80053; 85025; 93005; 94150; C1713; J0690; J1580; J1650; J1885; J2270; J2370; J2405; J3010; J3370